=== PATIENT | female | born 1980 | race Two or more races ===

== ENCOUNTER → 2024-07-25 | Outpatient (CLI) | payer OTHER, SELFPAY ==
--- NOTE | 2024-07-25 08:36 | XR_ITS ---
Examination: Diagnostic digital mammography, unilateral, right Computer aided detection 3-D breast Tomosynthesis, unilateral Date and time of exam: July 25, 2024 0853 hours INDICATIONS: Mammogram December 16, 2023 6 mm focal asymmetry inner right breast 6.5 cm from the nipple Technique: Nonmagnified MLO, CC views of the right breast have been obtained, reconstructed from 3-D Tomosynthesis images. R2 computer aided detection program utilized for evaluation of suspicious masses and/or abnormal calcifications. 3-D Tomosynthesis images obtained. Findings: Scattered areas of fibroglandular density No suspicious mass on this study Right breast sonogram today demonstrates 10:00 nodule 8 x 3 x 8 mm Impression: BI-RADS category 2: Benign findings Recommend yearly follow-up mammography Please see the right breast sonogram report today requesting 6 month right breast sonogram follow-up to document stability of 10:00 nodule
--- NOTE | 2024-07-25 08:36 | XR_ITS ---
Examination: Breast ultrasound, unilateral, right complete Date and time of exam: July 25, 2024 0938 hours INDICATIONS: Family history, mother, breast cancer mammogram January 13, 2024 focal asymmetry inner right breast, right breast sonogram January 13, 2024 8:00 nodule 4 mm 9:00 nodule 6 mm central nodule 6 mm, 10:00 nodule 7 mm Technique: Real-time joseph scale ultrasonographic imaging performed right breast including all 4 quadrants as well as nipple retroareolar and axillary region. Findings: 9:00 cyst 7 x 5 x 9 mm 10:00 oval mass circumscribed 8 x 3 x 8 mm 10:00 cyst 7 x 2 x 6 mm IMPRESSION: BI-RADS Category 3: Probably benign findings Recommend 1 additional 6 month right breast sonogram follow-up to document stability of 10:00 solid nodule described above
== END | disposition home or self-care (01) ==
LOC: CDIM 08:26
PROVIDERS: PCP Family Medicine; Referring Provider Specialist; Visit Provider Specialist
DX: R92.321 Mammographic fibroglandular density, right breast (principal); N63.11 Unspecified lump in the right breast, upper outer quadrant; Z80.3 Family history of malignant neoplasm of breast
CPT/HCPCS: 76641; 77061; 77065; G0279

== ENCOUNTER → 2024-08-17 | Outpatient (CLI) | payer OTHER, SELFPAY ==
[2024-08-17 10:36] LABS: Basophils # (Auto) 0.1 Thou/mm3 (0.0-0.2); Basophils % (Auto) 1 % (0-2.5); Eosinophils # (Auto) 0.2 Thou/mm3 (0.0-0.5); Eosinophils % (Auto) 4 % (0-10); Hematocrit 32.4 % (36.0-46.0); Hemoglobin 10.4 g/dL (12.0-16.0); Immature Granulocytes % (Auto) 0 % (0-0); Immature Granulocytes Auto 0.01 Thou/mm3 (0.00-0.00); Lymphocytes # (Auto) 1.7 Thou/mm3 (1.0-4.8); Lymphocytes % (Auto) 27 % (10-50); Mean Corpuscular HGB Conc 32.1 g/dl (31.0-37.0); Mean Corpuscular Hemoglobin 24.9 pg (25.0-35.0); Mean Corpuscular Volume 78 fL (80-100); Monocytes # (Auto) 0.6 Thou/mm3 (0.0-0.8); Monocytes % (Auto) 10 % (0-12); Neutrophils # (Auto) 3.6 Thou/mm3 (1.8-7.7); Neutrophils % (Auto) 58 % (37-80); Nucleated Red Blood Cell % 0 /100 WBC (0); Platelet Count 429 Thou/mm3 (140-440); RDW Standard Deviation 41.7 fL (36.4-46.3); Red Blood Count 4.17 Miln/mm3 (4.00-5.20); White Blood Count 6.2 Thou/mm3 (3.6-11.0)
[2024-08-17 10:48] LABS: Glucose Estimated Average 120 mg/dL (80-131); Hemoglobin A1C 5.8 % Hgb (4.8-6.0)
[2024-08-17 10:54] LABS: Thyroid Stimulating Hormone 1.53 uIU/mL (0.55-4.78)
== END | disposition home or self-care (01) ==
LOC: COPL 09:09
PROVIDERS: PCP Family Medicine; Referring Provider Nurse Practitioner Family; Visit Provider Nurse Practitioner Family
DX: Z00.00 Encounter for general adult medical examination without abnormal findings (principal); E11.9 Type 2 diabetes mellitus without complications; E03.9 Hypothyroidism, unspecified; R53.83 Other fatigue; Z13.89 Encounter for screening for other disorder
CPT/HCPCS: 36415; 83036; 84443; 85025

== ENCOUNTER → 2024-11-09 | Outpatient (CLI) | payer OTHER, SELFPAY ==
[2024-11-09 16:18] LABS: Glucose Estimated Average 120 mg/dL (80-131); Hemoglobin A1C 5.8 % Hgb (4.8-6.0)
== END | disposition home or self-care (01) ==
LOC: COPL 15:18
PROVIDERS: PCP Family Medicine; Referring Provider Family Medicine; Visit Provider Family Medicine
DX: E03.9 Hypothyroidism, unspecified (principal)
CPT/HCPCS: 36415; 83036

== ENCOUNTER → 2025-02-04 | Outpatient (CLI) | payer OTHER, SELFPAY ==
--- NOTE | 2025-02-04 10:30 | XR_ITS ---
Examination: Breast ultrasound, unilateral, right complete Date and time of exam: February 04, 2025 10:46 AM INDICATIONS: Palpable lump upper outer right breast note is beginning several years ago, family history, mother, breast cancer Technique: Real-time joseph scale ultrasonographic imaging performed right breast including all 4 quadrants as well as nipple retroareolar and axillary region. Findings: 9:00 cyst 10 x 7 mm 10:00 intramammary lymph node 7 x 8 mm 10:00 cyst 7 x 7 mm IMPRESSION: BI-RADS Category 2: Benign findings
--- NOTE | 2025-02-04 11:00 | XR_ITS ---
Examination: Screening digital mammography, bilateral Computer aided detection 3-D breast Tomosynthesis, bilateral Date and time of exam: February 04, 2025 1049 hours Compared to mammograms dating to September 08, 2020 Indication: Screening, family history, mother breast cancer Technique: Nonmagnified MLO, CC views of the breasts to been obtained, reconstructed from 3-D Tomosynthesis images. R2 computer aided detection program utilized for evaluation of suspicious masses and/or abnormal calcifications. 3-D Tomosynthesis images obtained. Findings: The breasts are heterogeneously dense, which may obscure small masses Benign calcifications. No interval suspicious masses Impression: BI-RADS category II: Benign Findings. Recommend 1 year follow-up mammogram.
== END | disposition home or self-care (01) ==
PROVIDERS: PCP Family Medicine; Referring Provider Specialist; Visit Provider Specialist
DX: Z12.31 Encounter for screening mammogram for malignant neoplasm of breast (principal); R92.323 Mammographic fibroglandular density, bilateral breasts; N60.01 Solitary cyst of right breast
CPT/HCPCS: 76641; 77063; 77067

== ENCOUNTER → 2025-03-07 | Outpatient (CLI) | payer OTHER, SELFPAY ==
[2025-03-07 16:44] LABS: Glucose Estimated Average 117 mg/dL (80-131); Hemoglobin A1C 5.7 % Hgb (4.8-6.0)
== END | disposition home or self-care (01) ==
LOC: COPL 14:05
PROVIDERS: PCP Nurse Practitioner Family; Referring Provider Nurse Practitioner Family; Visit Provider Nurse Practitioner Family
DX: E11.9 Type 2 diabetes mellitus without complications (principal)
CPT/HCPCS: 36415; 83036

== ENCOUNTER → 2025-03-28 | Outpatient (CLI) | payer OTHER, SELFPAY ==
[2025-03-28 17:22] LABS: Alanine Aminotransferase 10 U/L (10-49); Albumin, Serum 4.9 gm/dL (3.5-5.0); Alkaline Phosphatase 67 U/L (46-116); Aspartate Amino Transferase 16 U/L (0-34); Bilirubin,Direct < 0.1 mg/dL (0.0-0.3); Bilirubin,Total 0.3 mg/dL (0.3-1.2); Cardiac Risk Estimate 3.9 RATIO (3.7-5.6); Cholesterol 164 mg/dL (132-200); HDL Cholesterol 42 mg/dL (40-60); LDL Cholesterol,Calculated 66 mg/dL (0-130); Thyroid Stimulating Hormone 0.88 uIU/mL (0.55-4.78); Total Protein 7.9 gm/dL (5.7-8.2); Triglycerides 280 mg/dL (30-150)
== END | disposition home or self-care (01) ==
PROVIDERS: PCP Family Medicine; Referring Provider Family Medicine; Visit Provider Family Medicine
DX: E03.9 Hypothyroidism, unspecified (principal); E78.5 Hyperlipidemia, unspecified
CPT/HCPCS: 36415; 80061; 80076; 84443

== ENCOUNTER → 2025-08-28 | Outpatient (CLI) | payer OTHER, SELFPAY ==
[2025-08-28 08:05] LABS: Basophils # (Auto) 0.1 Thou/mm3 (0.0-0.2); Basophils % (Auto) 1 % (0-2.5); Eosinophils # (Auto) 0.2 Thou/mm3 (0.0-0.5); Eosinophils % (Auto) 2 % (0-10); Hematocrit 28.8 % (36.0-46.0); Immature Granulocytes Auto 0.02 Thou/mm3 (0.00-0.00); Lymphocytes # (Auto) 1.7 Thou/mm3 (1.0-4.8); Lymphocytes % (Auto) 26 % (10-50); Mean Corpuscular HGB Conc 30.2 g/dl (31.0-37.0); Mean Corpuscular Hemoglobin 20.9 pg (25.0-35.0); Mean Corpuscular Volume 69 fL (80-100); Monocytes # (Auto) 0.7 Thou/mm3 (0.0-0.8); Monocytes % (Auto) 10 % (0-12); Neutrophils # (Auto) 4.0 Thou/mm3 (1.8-7.7); Neutrophils % (Auto) 60 % (37-80); Nucleated Red Blood Cell # 0.00 Thou/mm3 (0.00-0.00); Nucleated Red Blood Cell % 0 /100 WBC (0); Platelet Count 465 Thou/mm3 (140-440); RDW Standard Deviation 46.0 fL (36.4-46.3); Red Blood Count 4.16 Miln/mm3 (4.00-5.20); White Blood Count 6.6 Thou/mm3 (3.6-11.0)
[2025-08-28 08:08] LABS: Hemoglobin 8.7 g/dL (12.0-16.0)
[2025-08-28 08:19] LABS: Vitamin D 25 Hydroxy Total 30.1 ng/mL (7.3-40.2)
[2025-08-28 08:38] LABS: Glucose Estimated Average 123 mg/dL (80-131); Hemoglobin A1C 5.9 % Hgb (4.8-6.0)
[2025-08-28 08:40] LABS: Alanine Aminotransferase 10 U/L (10-49); Albumin, Serum 4.7 gm/dL (3.5-5.0); Albumin/Globulin Ratio 1.8 (1.2-2.2); Alkaline Phosphatase 57 U/L (46-116); Anion Gap 12 (7-16); Aspartate Amino Transferase 15 U/L (0-34); BUN/Creatinine Ratio 21 Ratio (12-20); Bilirubin,Total 0.2 mg/dL (0.3-1.2); Blood Urea Nitrogen 19 mg/dL (9-23); Calcium 9.1 mg/dL (8.3-10.6); Calcium (Corrected) 9.1 mg/dL (8.5-10.1); Carbon Dioxide 23.0 mMol/L (20.0-31.0); Cardiac Risk Estimate 3.4 RATIO (3.7-5.6); Chloride 106 mMol/L (98-107); Cholesterol 169 mg/dL (132-200); Creatinine (Component) 0.9 mg/dL (0.6-1.3); Globulin 2.6 gm/dL (2.3-3.5); Glucose 114 mg/dL (74-106); HDL Cholesterol 50 mg/dL (40-60); LDL Cholesterol,Calculated 85 mg/dL (0-130); Osmolality,Calculated 284 (275-295); Potassium 4.5 mMol/L (3.4-5.1); Sodium 141 mMol/L (136-145); Thyroid Stimulating Hormone 1.83 uIU/mL (0.55-4.78); Total Protein 7.3 gm/dL (5.7-8.2); Triglycerides 171 mg/dL (30-150); eGFR > 60 See Note
[2025-08-28 08:48] LABS: Collection Type, Urine Clean Catch; RBC,Urine 0 /hpf (0-3)
[2025-08-28 11:37] LABS: Bilirubin,Urine Negative (Negative); Blood,Urine Negative (Negative); Clarity,Urine Clear (Clear/Hazy); Color,Urine Yellow (Lt Yel-Yel); Culture Indicated,Urine Not Indicated; Glucose, Urine Negative (Negative); Ketones,Urine Negative (Negative); Leukocyte Esterase,Urine Positive (Negative); Nitrite,Urine Negative (Negative); PH,Urine 6.0 (5.0-7.0); Protein,Urine Trace (Neg - Trace); Specific Gravity,Urine 1.030 (1.001-1.035); Squamous Epithelial Cell,Urine 1 /hpf (0-5); Urobilinogen,Urine Negative mg/dL (0.0-1.0); WBC,Urine < 1 /hpf (0-5)
== END | disposition home or self-care (01) ==
LOC: COPL 07:27
PROVIDERS: PCP Family Medicine; Referring Provider Family Medicine; Visit Provider Family Medicine
DX: Z00.00 Encounter for general adult medical examination without abnormal findings (principal); E55.9 Vitamin D deficiency, unspecified; N39.0 Urinary tract infection, site not specified; Z79.899 Other long term (current) drug therapy; Z12.9 Encounter for screening for malignant neoplasm, site unspecified; Z13.1 Encounter for screening for diabetes mellitus; Z13.220 Encounter for screening for lipoid disorders
CPT/HCPCS: 36415; 80053; 80061; 81001; 82306; 83036; 84443; 85025